=== PATIENT | male | born 1965 | race Caucasian/White ===

== ENCOUNTER 2016-05-01 00:25 | Emergency (ER) | payer OTHER ==
[~2016-05-01] VITALS: Ht 182.9 cm; Wt 93.5 kg
[2016-05-01 00:45] VITALS: Ht 182.9 cm; Wt 93.5 kg
[2016-05-01] MEDS ORDERED: FLUORESCEIN STRIP LEFT EYE ONE (03:30)
[2016-05-01] MEDS ORDERED: DIPHTH/TET/ACEL PERTUSS (ADULT) 0.5 ML VIAL IM* ONE (03:30)
--- NOTE | 2016-05-01 04:02 | RADRPT ---
PROCEDURE: CT facial bones CLINICAL INDICATION: Trauma TECHNIQUE: Thin section spiral CT images through the facial bones without contrast. Multiplanar re constructions. The CTDIvol is 29.54 mGy and the DLP is 587.93 mGy-cm. One or more of the following dose reduction techniques were used: automated exposure control, adjustment of the mA and/or kV acc ording to patient size, or use of iterative reconstruction technique. COMPARISON: None. FINDINGS: No fracture or dislocation is seen. The globes appear symmetric and intact. No definite soft tissu e abnormality. There is minimal mucoperiosteal thickening of the maxillary and ethmoid sinuses. The re is lucency surrounding the roots of the remaining right mandibular molar suggesting dental diseas e. . Multiple missing teeth. IMPRESSION: No definite acute traumatic abnormality. RPTAT: [facility] Physician Chad Date Time Electronically viewed and signed by Physician Chad on 05/01/2016 04:02 ROSANGELA/
--- NOTE | 2016-05-01 04:03 | ERD ---
ER Documentation Chief Complaint Date/Time DATE: 05/01/16 TIME: 04:01 Chief Complaint Facial trauma Garage door broke and fell on his face 2 days ago HPI 50-year-old male presents here in emergency department for complaints of left facial trauma after being hit by a garage door 3 days ago. It fell on the left side of his face and his nasal area, noted some deformity in the nasal area and sent swelling. Patient denies any vision changes. Patient denies any foreign body sensation in the left eye. Patient complaints of pain, throbbing pain, 6/ 10 scale, is worse upon touching the area. Patient denies any difficulty breathing. Patient did not take any medications for pain. ROS All systems reviewed and are negative except as per history of present illness. Medications Home Meds Reported Medications [none] Unknown Strength No Conflict Check 05/01/16 Allergies Allergies: Coded Allergies: No Known Allergy (Unverified , 05/01/16) PMhx/Soc Medical and Surgical Hx: pt denies Surgical Hx Hx Respiratory Disorders: Yes (PNA) Hx Alcohol Use: Yes (socially) Hx Substance Use: No Hx Tobacco Use: Yes (2 ppd) Smoking Status: Current every day smoker FmHx Family History: No coronary disease, No diabetes, No other Physical Exam Vitals Vital Signs Date Time Temp Pulse Resp B/P Pulse Ox O2 Delivery O2 Flow Rate FiO2 05/01/16 00:45 97.9 84 18 181/104 96 Physical Exam GENERAL: The patient is well developed and appropriate for usual state of health, in no apparent distress. HEENT: Atraumatic. Eyes are PERRL EM intact. No watery eyes noted, no tearing noted. Noted some redness running the upper and lower eyelid and some bruising noted. Ears: Normal tympanic membrane, no erythema or bulging. No ear canal swelling. No ear discharge. Nose: normal nasal turbinates, no erythema or swelling. Normal nasal discharge. Noted nasal bridge to be inflamed and swollen . Throat: oropharynx clear. No tonsillar swelling or tonsillar exudates. No lymphadenopathy. CHEST: Clear to auscultation bilaterally. There are no rales, wheezes or rhonchi. HEART: Regular rate and rhythm. No murmurs, clicks, rubs or gallops. No S3 or S4. ABDOMEN: Soft, nontender and nondistended. Good bowel sounds. No rebound or guarding. No gross peritonitis. No gross organomegaly or masses. No Carroll sign or McBurney point tenderness. BACK: No midline or flank tenderness. EXTREMITIES: Equal pulses bilaterally. There is no peripheral clubbing, cyanosis or edema. No focal swelling or erythema. Full range of motion. Grossly neurovascularly intact. NEURO: Alert and oriented. Cranial nerves 2-12 intact. Motor strength in all 4 extremities with 5/5 strength. Sensation grossly intact. Normal speech and gait. SKIN: There is no apparent rash or petechia. The skin is warm and dry. HEMATOLOGIC AND LYMPHATIC: There is no evidence of excessive bruising or lymphedema. No gross cervical, axillary, or inguinal lymphadenopathy. Results 24 hrs Current Medications Medications (Trade) Dose Ordered Sig/Andrzej Route PRN Reason Start Time Stop Time Status Last Admin Dose Admin Diphtheria/ Tetanus/Acell Pertussis (Adacel) 0.5 ml ONCE ONCE IM* 05/01/16 03:30 05/01/16 03:31 DC 05/01/16 03:50 Fluorescein Sodium (Eboye-N-Ufttl) 1 strip ONCE ONCE LEFT EYE 05/01/16 03:30 05/01/16 03:31 DC Tdap was given to prevent tetanus. Patient tolerated medication well. PROCEDURE: CT facial bones CLINICAL INDICATION: Trauma TECHNIQUE: Thin section spiral CT images through the facial bones without contrast. Multiplanar reconstructions. The CTDIvol is 29.54 mGy and the DLP is 587.93 mGy-cm. One or more of the following dose reduction techniques were used: automated exposure control, adjustment of the mA and/or kV according to patient size, or use of iterative reconstruction technique. COMPARISON: None. FINDINGS: No fracture or dislocation is seen. The globes appear symmetric and intact. No definite soft tissue abnormality. There is minimal mucoperiosteal thickening of the maxillary and ethmoid sinuses. There is lucency surrounding the roots of the remaining right mandibular molar suggesting dental disease. . Multiple missing teeth. IMPRESSION: No definite acute traumatic abnormality. RPTAT: [facility] Physician Chad Date Time Electronically viewed and signed by Physician Chad on 05/01/2016 04 :02 LE/ CC: SELENE LARSON NP Procedures/MDM Procedure Note: After obtaining informed consent, the left eye was stained using fluorescein dye. After staining the eye, A Wood's lamp was used to evaluate the eye. There is no foreign body noted in the eye. No corneal abrasions noted. Patient tolerated procedure well. Medical decision making: Patient has an abrasion in the nose, it is red and swollen, most likely contusion also. Patient without any symptoms of neurologic emergencies at this time. CT scan of the brain are indicated at this time. Patient did not lose consciousness after the injury. Patient did not have any vomiting, patient had the injury 3 days ago, did not have any changes in balance memory or any other neurologic symptoms. Patient may nasal bones are intact and does not have any fractures or dislocation. Upon left eye evaluation , no foreign body no corneal abrasion noted. Eye exam is normal. Visual acuity is normal for patient, 20/30 right eye 20/30 left eye, 20/20 both eyes. At this time, patient will be given a prescription for Keflex to prevent infection on the abrasion wound, will be given Tylenol for mild to moderate pain, and treadmill for severe pain, is advised to apply ice and affected area, follow with primary doctor in 2-3 days for reevaluation of symptoms. Patient was advised to return to emergency department for worsening symptoms. Departure Diagnosis: Primary Impression: Facial contusion Encounter type: initial encounter Qualified Code: S00.83XA - Facial contusion, initial encounter Additional Impressions: Abrasion Head injury Encounter type: initial encounter Qualified Code: S09.90XA - Head injury, initial encounter Condition: Stable Patient Instructions: Abrasion, Facial Contusion, No Wakeup SELENE LARSON NP May 01, 2016 04:03
[2016-05-01] MEDS ORDERED: ACET500C5 PO (04:31)
[2016-05-01] MEDS ORDERED: HYDR-906 PO (04:31)
[2016-05-01] MEDS ORDERED: CEPH-443 PO (04:31)
== END 2016-05-01 04:54 | disposition home or self-care (01) ==
LOC: FTE 00:25
DX: S00.83XA Contusion of other part of head, initial encounter (principal); S00.31XA Abrasion of nose, initial encounter; S09.90XA Unspecified injury of head, initial encounter; F17.210 Nicotine dependence, cigarettes, uncomplicated; W20.8XXA Other cause of strike by thrown, projected or falling object, initial encounter; Y92.59 Other trade areas as the place of occurrence of the external cause; Z23 Encounter for immunization
CPT/HCPCS: 70486; 90471; 90715; Z7502; Z7610